=== PATIENT | male | born 2000 | race Caucasian/White ===

== ENCOUNTER 2019-09-27 04:34 | Emergency (ER) | payer OTHER ==
[~2019-09-27] VITALS: Ht 170.2 cm; Wt 97.5 kg
[2019-09-27 04:34] VITALS: BP_SYST 143
--- NOTE | 2019-09-27 04:34 | NUR ---
Patient to [facility] for evaluation. Side rails up. Report given to MAIKEL Bradford
--- NOTE | 2019-09-27 04:44 | NUR ---
ER Dr. Persaud at bedside examining patient.
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
--- NOTE | 2019-09-27 05:03 | NUR ---
Written and verbal consent obtained from patient for blood alcohol, name and verified by patient. Disinfected patient's skin with iodine that did not contain alcohol or other volatile organic compound. Collected the blood from the subject named by venipuncture, in the presence of Sheriff Yanes. Used a sterile, dry hypodermic needle and dry vacuum blood collection. Two dry vacuum blood collection was supplied by the officer named above. Withdrew a specimen of blood from R Arm of the subject named above. Inverted both blood tube several times to ensure that the preservative and anticoagulant were thoroughly mixed in the blood specimen. I initialed both blood tube label for identification. The labeled blood tubes was handed directly to the Officer named above. The blood tubes stopper remained in place while I had possession of the blood tubes. The Officer placed tubes into envelope and sealed it in my presence. Envelope initialed by myself and Officer named above. Patient tolerated well, bandage applied, and bleeding controlled.
[2019-09-27] MEDS ORDERED: NALOXONE HCL 0.4 MG/ML AMP (NARCAN) IVP ONE (05:45)
--- NOTE | 2019-09-27 05:50 | NUR ---
Dr. Persaud verbal order to change Narcan to IM adm. Well tolerated
[2019-09-27 06:00] VITALS: BP_SYST 143
[2019-09-27] MEDS ORDERED: NALOXONE HCL 2 MG/2 ML SYR (NARCAN) IM ONE (06:00)
--- NOTE | 2019-09-27 06:00 | NUR ---
Patient given written and verbal discharge instructions and verbalizes understanding. ER MD discussed with patient the results and treatment provided. Patient in stable condition. ID arm band removed. Patient educated on pain management and to follow up with PMD. Pain Scale 0/10 Opportunity for questions provided and answered.
== END 2019-09-27 06:00 ==
LOC: SED 04:34
DX: Z04.1 Encounter for examination and observation following transport accident (principal)
CPT/HCPCS: 36415; 82962; 96372; 99283; G0482; J2310; 96374